=== PATIENT | female | born 1995 | race Caucasian/White ===

== ENCOUNTER → 2018-03-11 00:33 | Observation (INO) ==
[2018-03-10 22:31] LABS: Bilirubin,Urine Negative (Negative); Blood,Urine Negative (Negative); Clarity,Urine Cloudy (Clear); Color,Urine Yellow (Yellow); Glucose,Urine (UA) >=1000 mg/dL (Normal); Ketones,Urine Negative (Negative); Leukocyte Esterase,Urine Small (Negative); Nitrite,Urine Negative (Negative); PH,Urine 6.5 pH Units (5.0-8.0); Protein,Urine Negative (Neg-Trace); Specific Gravity,Urine 1.019 (1.010-1.025); Urobilinogen,Urine Normal (Normal)
[2018-03-10 22:32] LABS: Bacteria,Urine Moderate per hpf (None-Few); Hyaline Casts,Urine None Seen per lpf (None-Few); Squamous Epithelial Cell,Urine Many per lpf (None-Few); WBC,Urine 15-30 per hpf (0-3)
[2018-03-10 22:45] LABS: Amphetamine Screen,Urine Negative ng/mL (Cutoff=1000); Barbiturate Screen,Urine Negative ng/mL (Cutoff=200); Benzodiazepines Screen,Urine Negative ng/mL (Cutoff=200); Cannabinoid Screen,Urine Negative ng/mL (Cutoff = 50); Cocaine Screen,Urine Negative ng/mL (Cutoff= 300); Opiate Screen,Urine Negative ng/mL (Cutoff=300); Phencyclidine Screen,Urine Negative ng/mL (Cutoff=25)
[2018-03-10 22:52] LABS: Amorphous Sediment,Urine Few (Few); RBC,Urine 0-3 per hpf (0-3)
--- NOTE | 2018-03-11 00:05 | Discharge Summary ---
Date of Encounter: 03/11/18 Time of Encounter: 00:04 - Discharge Diagnosis (1) 28 weeks gestation of Priority: Primary Status: Acute Comments: Infant observation for complaints of vomiting Continuous monitoring and toco monitoring No uterine activity noted on monitor (2) Vomiting affecting , antepartum Priority: Secondary Status: Acute Comments: Patient states she has been vomiting since 8 PM Sublingual Zofran given with positive results. Patient states she feels better after the medication and has not vomited since. We will send home with prescription for Zofran as needed (3) Diabetes mellitus complicating Priority: Secondary Status: Acute Comments: Patient is type I diabetic. She is on multiple insulins Follow-up on Sunday as scheduled for regular appointment Qualifiers: Trimester: third trimester Qualified Code(s): O24.913 - Unspecified diabetes mellitus in , third trimester - Discharge Medications Prescriptions: Ondansetron HCl [Zofran] 4 mg PO Q8HR PRN 5 Days #15 tab PRN Reason: Nausea Home Medications: Cephalexin [Keflex] 500 mg PO BID #10 capsule 02/17/18 [Rx] Ondansetron HCl [Zofran] 4 mg PO Q8HR PRN 5 Days #15 tab 03/11/18 [Rx] Allergies/Adverse Reactions: Allergy/AdvReac Type Severity Reaction Status Date / Time Diphenylpyraline Allergy Mild Hives Verified 03/10/18 21:44 Data Procedures and tests throughout hospitalization: Laboratory Tests 03/10/18 03/10/18 21:48 21:48 Urine Color Yellow Urine Clarity Cloudy A Urine pH 6.5 Ur Specific [place] 1.019 Urine Protein Negative Urine Glucose (UA) >=1000 H Urine Ketones Negative Urine Blood Negative Urine Nitrite Negative Urine Bilirubin Negative Urine Urobilinogen Normal Ur Leukocyte Esterase Small H Urine Microscopic RBC 0-3 Urine Microscopic WBC 15-30 H Ur Squamous Epith Cells Many H Amorphous Sediment Few Urine Bacteria Moderate H Hyaline Casts None Seen Ur Culture Indicated? NO. A Urine Opiates Screen Negative Ur Barbiturates Screen Negative Ur Phencyclidine Scrn Negative Ur Amphetamines Screen Negative U Benzodiazepines Scrn Negative Urine Cocaine Screen Negative U Marijuana (THC) Screen Negative Ur Drug Screen Interp See Below Labs on day of discharge: Labs from last 24 hours 03/10/18 03/10/18 21:48 21:48 Urine Color Yellow Urine Clarity Cloudy A Urine pH 6.5 Ur Specific [place] 1.019 Urine Protein Negative Urine Glucose (UA) >=1000 H Urine Ketones Negative Urine Blood Negative Urine Nitrite Negative Urine Bilirubin Negative Urine Urobilinogen Normal Ur Leukocyte Esterase Small H Urine Microscopic RBC 0-3 Urine Microscopic WBC 15-30 H Ur Squamous Epith Cells Many H Amorphous Sediment Few Urine Bacteria Moderate H Hyaline Casts None Seen Ur Culture Indicated? NO. A Urine Opiates Screen Negative Ur Barbiturates Screen Negative Ur Phencyclidine Scrn Negative Ur Amphetamines Screen Negative U Benzodiazepines Scrn Negative Urine Cocaine Screen Negative U Marijuana (THC) Screen Negative Ur Drug Screen Interp See Below Date of admission: 03/10/18 21:32 Discharging clinician: Heather Rosario Anticipated date of discharge: 03/11/18 - Patient Status Disposition: Home, Self-Care Condition: Good Functional capacity at discharge: independent ambulation Overall status at discharge: patient is progressing back to baseline - Discharge Instructions Follow Up With: Ritu Renteria MD [Partnered Physician] - - Diet and Activity Activity: resume usual activities as tolerated Diet: regular diet 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 Reports positive movement denies vaginal bleeding and leakage of fluid. Urinalysis was obtained patient mildly dehydrated. She was given sublingual Zofran while here which was effective and she reports feeling better. She is scheduled to follow-up for regular care on 03/[address] Renteria. Patient says she has not taken her evening doses of insulin. Her fingerstick tonight was 228. According to her record her glucose levels are not well controlled. She is instructed to take her evening doses when she returns home. Zofran by mouth sent to pharmacy. heart rate while here 155 bpm, +10 x 10 accelerations, no decelerations. heart tracing appropriate for gestational age. No uterine activity noted on monitor Time Attestation: Total time spent providing and/or coordinating discharge services: Time Spent: Less than 30 minutes Exam - Constitutional General appearance IM: A&O X 3, pleasant, no acute distress, answers questions appropriately - Respiratory Respiratory exam: Present: CTAB - Cardiovascular Cardiovascular exam IM: Present: RRR, +S1, +S2 - GI/Abdominal GI/Abdominal exam IM: normal bowel sounds - Rectal Rectal exam: deferred - Extremities Exam Extremities exam IM: Present: full ROM, normal capillary refill, normal inspection - Neurological Exam Neurological exam: alert, normal gait, oriented X3, reflexes normal - VTE Reasons for not Prescribing Prophylaxis: Treatment not Indicated - Low risk for VTE
[~2018-03-11 00:33] MED LIST: Ondansetron ODT 4 MG TAB.RAPDIS SL ONE
== END | disposition home or self-care (01) ==
LOC: 1NENULAB
PROVIDERS: ADMIT Obstetrics & Gynecology; ATTEND Obstetrics & Gynecology

== ENCOUNTER → 2018-03-19 15:08 | Observation (INO) ==
[2018-03-19 14:35] LABS: Amphetamine Screen,Urine Negative ng/mL (Cutoff=1000); Barbiturate Screen,Urine Negative ng/mL (Cutoff=200); Benzodiazepines Screen,Urine Negative ng/mL (Cutoff=200); Cannabinoid Screen,Urine Negative ng/mL (Cutoff = 50); Cocaine Screen,Urine Negative ng/mL (Cutoff= 300); Opiate Screen,Urine Negative ng/mL (Cutoff=300); Phencyclidine Screen,Urine Negative ng/mL (Cutoff=25)
[2018-03-19 14:38] LABS: Bilirubin,Urine Negative (Negative); Blood,Urine Negative (Negative); Clarity,Urine Clear (Clear); Color,Urine Yellow (Yellow); Glucose,Urine (UA) Normal (Normal); Ketones,Urine Negative (Negative); Leukocyte Esterase,Urine Small (Negative); Nitrite,Urine Negative (Negative); PH,Urine 6.5 pH Units (5.0-8.0); Protein,Urine Negative (Neg-Trace); Specific Gravity,Urine 1.008 (1.010-1.025); Urobilinogen,Urine Normal (Normal)
[2018-03-19 14:44] LABS: Bacteria,Urine Few per hpf (None-Few); Hyaline Casts,Urine None Seen per lpf (None-Few); RBC,Urine 0-3 per hpf (0-3); Squamous Epithelial Cell,Urine Many per lpf (None-Few)
[~2018-03-19 15:08] MED LIST changes: +Clotrimazole Vag CRM 45 GM TUBE VG SCH; -Ondansetron ODT 4 MG TAB.RAPDIS SL ONE
--- NOTE | 2018-03-19 18:55 | OB/GYN Progress Note ---
Date of Encounter: 03/19/18 Time of Encounter: 18:53 - Assessment and Plan (1) 28 weeks gestation of Current Visit: No Status: Acute 22 y/o @ 28 weeks who presents to L&D for vag discharge, no LOF, VB or ctxs, feels good FM, VE shows yeast infx, vaginosis panel sent clotrimazole given, follow up outpt Objective - Labs Labs: Abnormal lab results Ur Specific [place] 1.008 (1.010-1.025) L 03/19/18 14:00 Ur Leukocyte Esterase Small (Negative) H 03/19/18 14:00 Urine Microscopic WBC 5-15 per hpf (0-3) H 03/19/18 14:00 Ur Squamous Epith Cells Many per lpf (None-Few) H 03/19/18 14:00 Ur Culture Indicated? NO. (NO) A 03/19/18 14:00
== END | disposition home or self-care (01) ==
LOC: 1NENULAB
PROVIDERS: ADMIT Student in an Organized Health Care Education/Training Program; ATTEND Student in an Organized Health Care Education/Training Program

== ENCOUNTER → 2018-04-14 16:35 | Observation (INO) ==
[2018-04-14 13:55] LABS: Basophils # 0.1 K/mcL (0.0-0.2); Basophils % 0.5 %; Eosinophils # 0.3 K/mcL (0.0-0.6); Eosinophils % 1.6 %; Immature Granulocytes % 1.2 % (0-4); Lymphocytes # 3.3 K/mcL (0.6-4.6); Lymphocytes % 18.8 %; Mean Corpuscular HGB Conc 31.4 g/dL (31.6-35.5); Mean Corpuscular Hemoglobin 25.1 pg (28.0-33.3); Mean Corpuscular Volume 79.9 fL (83.0-100.0); Mean Platelet Volume 11.7 fL (9.4-12.4); Monocytes % 5.6 %; Neutrophils # 12.7 K/mcL (1.6-8.9); Platelet Count 266 K/mcL (140-400); Red Blood Count 4.38 M/mcL (3.82-4.97); Red Cell Distribution Width 14.6 % (11.5-14.5); Segmented Neutrophils % 72.3 %
[2018-04-14 14:00] LABS: Amphetamine Screen,Urine Negative ng/mL (Cutoff=1000); Barbiturate Screen,Urine Negative ng/mL (Cutoff=200); Benzodiazepines Screen,Urine Negative ng/mL (Cutoff=200); Cannabinoid Screen,Urine Negative ng/mL (Cutoff = 50); Cocaine Screen,Urine Negative ng/mL (Cutoff= 300); Creatinine,Urine 125 mg/dL; Opiate Screen,Urine Negative ng/mL (Cutoff=300); Phencyclidine Screen,Urine Negative ng/mL (Cutoff=25); Protein/Creatinine Ratio,Urine 0.22 mg/mg (0.00-0.20)
[2018-04-14 14:10] LABS: Alanine Aminotransferase 7 Units/L (7-52); Aspartate Amino Transferase 9 Units/L (13-39); BUN/Creatinine Ratio 14 (6-26); Blood Urea Nitrogen 7 mg/dL (6-20); Lactate Dehydrogenase 116 Units/L (140-271); Uric Acid 5.9 mg/dL (2.3-7.6); eGFR For Non-African Americans > 60 (> 60)
--- NOTE | 2018-04-14 15:09 | Anesthesia Procedures ---
Date of Encounter: 04/14/18 Time of Encounter: 14:26 Procedures: Anesthesia - Epidural/Spinal Patient ID/Chart reviewed: Yes Patient examined: Yes OB Eval: Gestational age: 38 OB Eval: : 5 OB Eval: Hx Para: 1 OB Eval: Dilated at (cm): 9 OB Eval: Contractions: Non-stressed pattern Consent Obtained: Yes Supplemental Oxygen: None/Room Air Site Prep: Aseptic Technique, Sterile prep and drape, 0.5% Chlorhexidine/Alcohol Local Anesthetic: Lidocaine 1% Amount of Local Anesthetic used: 2 Touhy Needle Gauge: 18 Touhy Needle Depth (cm): 9 Catheter Depth at Skin (cm): 14 Test Dose (1.5% Lido + Epi): Volume given (mls): 3 Test Dose Result: Negative Loading Dose: Other: 7ml of lido 2% with epi Loading Dose Administered: Thru Catheter Infusion Med: 0.125% Bupivacaine w/ 2 mcg/ml Fentanyl Infusion Rate (mls/hr): [address]: Tegaderm, Tape Interspace Used: L3-L4 Loss of Resistance (LAQUITA): Yes (saline) Blood: No CSF: Yes (attempted 2 levels with CSE KIT, with dura pop but no CSF.) Procedure: dura pop with no csf flow, introducer replaced again no flow twice at two different levels, epidural cath easily placed, patient kept in sitting with 5min to allow lido to take effect. VSS though out, mag well. strict aseptic tech though out,
--- NOTE | 2018-04-14 15:20 | Anesthesia Evaluation PreOp ---
Addendum entered and electronically signed by Raymundo Hernandez CRNA 04/14/18 15:41: entered in ERROR. Please disregard entire Document!!!! 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 (anxiety, depression, ADHD, Herpes simplex on valtrex no active lesions reported.) Other Medical History: Diabetes Type I (gestational), GERD Alcohol Use: none Drug use: none Medications and Allergies Levemir 45 units SQ DAILY 03/19/18 [History] Pnv95/Ferrous Fumarate/FA [ Vitamin Tablet] 1 tab PO BID 03/19/18 [History] metFORMIN [Glucophage] 1,000 mg PO BID 03/19/18 [History] Ferrous Sulfate [Iron] 325 mg PO 04/14/18 [History] Allergy/AdvReac Type Severity Reaction Status Date / Time cephalexin [From Keflex] Allergy Intermediate Hives Verified 04/14/18 13:21 diphenhydramine Allergy Intermediate Hives Verified 04/14/18 13:21 [From Benadryl] Anesthesia Results - Labs 04/14/18 13:11 04/14/18 13:11 Anesthesia Exam - HEENT Pupil (Motor): Pupils equal Mallampati: II Teeth: Normal Oral Opening: Greater than 3 - FILTER PRESS PUMPER LOC: Oriented FILTER PRESS PUMPER Motor: Normal RUE, Normal LUE, Normal RLE, Normal LLE, Normal Face FILTER PRESS PUMPER Sensory: Normal: RUE, LUE, RLE, LLE, Face - Cardiac Rhythm: Regular Murmur: None - Pulmonary Breath Sounds: bilateral Clear Respiratory Effort: Symmetrical Anesthesia Assess/Plan ASA Score: 3 Level of consciousness: Cooperative, Oriented Anesthetic Plan: General, Spinal, Epidural Monitoring Plan: Standard Monitors Recovery Plan: PACU
[2018-04-14 15:37] LABS: Bilirubin,Urine Negative (Negative); Blood,Urine Negative (Negative); Clarity,Urine Clear (Clear); Color,Urine Yellow (Yellow); Glucose,Urine (UA) Normal (Normal); Ketones,Urine Negative (Negative); Leukocyte Esterase,Urine Negative (Negative); Nitrite,Urine Negative (Negative); Protein,Urine Negative (Neg-Trace); Specific Gravity,Urine 1.009 (1.010-1.025); Urobilinogen,Urine Normal (Normal)
--- NOTE | 2018-04-14 16:17 | OB/GYN Progress Note ---
Date of Encounter: 04/14/18 Time of Encounter: 16:14 (PIH eval) - Assessment and Plan (1) Hypertension affecting in third trimester Current Visit: Yes Status: Acute (2) 31 weeks gestation of Current Visit: No Status: Acute Patient will be discharged to home. Patient instructed to have pelvic rest and bedrest. Patient to monitor blood pressures 3 times a day at home. Patient to follow up in office on Sunday. Warning signs of preeclampsia were discussed. Patient will be discharged to home. Subjective - Subjective Principal diagnosis: PIH eval Interval history: Lori is a 22-year-old female 1 who presents to labor and delivery at 32 weeks and 3 days complaining of elevated blood pressures 130/90 , headache and nausea at home. She presented to labor and delivery for evaluation. On arrival patient's blood pressures were stable and in normal range. PIH eval was sent. Patient was monitored throughout the afternoon. Reactive heart rate tracing. Occasional contraction was noted. No decelerations seen. Results of blood work were then reviewed and all found to be normal. No elevations were seen. Because of this instructions for Kareem is hypertension were discussed with this patient. She does have follow-up in the office on Sunday for nonstress test and blood pressure eval. Objective - Exam FHR: category 1 Abdomen: Present: normal appearance, soft, gravid Uterus: Present: normal - Labs Labs: Abnormal lab results WBC 17.6 K/mcL (4.3-11.1) H 04/14/18 13:11 Hgb 11.0 g/dL (11.5-15.4) L 04/14/18 13:11 Hct 35.0 % (35.3-44.9) L 04/14/18 13:11 MCV 79.9 fL (83.0-100.0) L 04/14/18 13:11 MCH 25.1 pg (28.0-33.3) L 04/14/18 13:11 MCHC 31.4 g/dL (31.6-35.5) L 04/14/18 13:11 RDW 14.6 % (11.5-14.5) H 04/14/18 13:11 Neutrophils # 12.7 K/mcL (1.6-8.9) H 04/14/18 13:11 Creatinine 0.51 mg/dL (0.60-1.20) L 04/14/18 13:11 AST 9 Units/L (13-39) L 04/14/18 13:11 Lactate Dehydrogenase 116 Units/L (140-271) L 04/14/18 13:11 Ur Specific [place] 1.009 (1.010-1.025) L 04/14/18 15:17 Protein/Creatinin Ratio 0.22 mg/mg (0.00-0.20) H 04/14/18 13:11 Urine Total Protein 28 mg/dL (1-14) H 04/14/18 13:11
== END | disposition home or self-care (01) ==
LOC: 1NENULAB
PROVIDERS: ADMIT Registered Nurse; ATTEND Registered Nurse

== ENCOUNTER 2018-04-30 15:49 | Observation (INO) ==
[2018-04-30] MEDS ORDERED: Ringers Solution, Lactated 1,000 ML IVC ONE (16:19)
[2018-04-30 16:21] LABS: Basophils # 0.1 K/mcL (0.0-0.2); Basophils % 0.4 %; Eosinophils # 0.3 K/mcL (0.0-0.6); Eosinophils % 1.6 %; Hematocrit 36.5 % (35.3-44.9); Hemoglobin 11.6 g/dL (11.5-15.4); Immature Granulocytes % 1.2 % (0-4); Lymphocytes # 3.4 K/mcL (0.6-4.6); Lymphocytes % 17.7 %; Mean Corpuscular HGB Conc 31.8 g/dL (31.6-35.5); Mean Corpuscular Hemoglobin 25.4 pg (28.0-33.3); Mean Platelet Volume 12.1 fL (9.4-12.4); Neutrophils # 14.4 K/mcL (1.6-8.9); Platelet Count 260 K/mcL (140-400); Red Blood Count 4.56 M/mcL (3.82-4.97); Red Cell Distribution Width 15.4 % (11.5-14.5); Segmented Neutrophils % 74.1 %
[2018-04-30 16:22] LABS: Bilirubin,Urine Negative (Negative); Blood,Urine Negative (Negative); Clarity,Urine Cloudy (Clear); Color,Urine Yellow (Yellow); Glucose,Urine (UA) Normal (Normal); Ketones,Urine 15 mg/dL (Negative); Leukocyte Esterase,Urine Large (Negative); Nitrite,Urine Negative (Negative); Protein,Urine Negative (Neg-Trace); Specific Gravity,Urine 1.006 (1.010-1.025); Urobilinogen,Urine Normal (Normal)
[2018-04-30 16:25] LABS: Bacteria,Urine Moderate per hpf (None-Few); Hyaline Casts,Urine None Seen per lpf (None-Few); RBC,Urine 0-3 per hpf (0-3); Squamous Epithelial Cell,Urine Many per lpf (None-Few); WBC,Urine 50-100 per hpf (0-3)
[2018-04-30 16:32] LABS: Amphetamine Screen,Urine Negative ng/mL (Cutoff=1000); Barbiturate Screen,Urine Negative ng/mL (Cutoff=200); Benzodiazepines Screen,Urine Negative ng/mL (Cutoff=200); Cannabinoid Screen,Urine Negative ng/mL (Cutoff = 50); Cocaine Screen,Urine Negative ng/mL (Cutoff= 300); Creatinine,Urine 32 mg/dL; Opiate Screen,Urine Negative ng/mL (Cutoff=300); Phencyclidine Screen,Urine Negative ng/mL (Cutoff=25); Protein/Creatinine Ratio,Urine 0.34 mg/mg (0.00-0.20)
[2018-04-30 16:45] LABS: Alanine Aminotransferase 6 Units/L (7-52); Aspartate Amino Transferase 8 Units/L (13-39); BUN/Creatinine Ratio 14 (6-26); Blood Urea Nitrogen 8 mg/dL (6-20); Lactate Dehydrogenase 115 Units/L (140-271); Uric Acid 6.1 mg/dL (2.3-7.6); eGFR For Non-African Americans > 60 (> 60)
[2018-04-30 17:26] LABS: Glucose 120 mg/dL (70-105)
[2018-04-30] MEDS ORDERED: Ondansetron 4 MG/2 ML VIAL IVP ONE (17:53)
[2018-04-30] MEDS ORDERED: Ondansetron ODT 4 MG TAB.RAPDIS SL ONE (18:05)
[2018-04-30] MEDS ORDERED: Nitrofurantoin (BID) 100 MG CAPSULE PO SCH (18:45)
--- NOTE | 2018-04-30 19:52 | OB/GYN Progress Note ---
Date of Encounter: 04/30/18 Time of Encounter: 19:46 - Assessment and Plan (1) 34 weeks gestation of Current Visit: Yes Status: Acute Lori is a 22 y/o @ 34+5 weeks who presented to L&D for tox eval, she called saying that her BP was in the mild range, no LOF, VB or ctxs feels good FM, patient is type 2 DM on Metformin and insulin, cervix checked and FT, NST reactive, UA suggests UTI, macrobid given, patient allergic to Keflex, tox labs show 0.34 proteinuria with normal labs several normal pressures her on L&D with one elevated BP in the 140's, patient to be discharged to follow up out patient, she may have pre-eclampsia w/o severe features but the pressures have to be 4 hr apart, patient scheduled for NST tomorrow, will do BP check as well Objective - Vital Signs Vital Signs: Intake and Output 04/30/18 04/30/18 04/30/18 07:59 15:59 23:59 Other: Weight 90.3 kg Patient Weight 04/30/18 23:59 Weight 90.3 kg - Labs Labs: Abnormal lab results WBC 19.4 K/mcL (4.3-11.1) H 04/30/18 16:00 MCV 80.0 fL (83.0-100.0) L 04/30/18 16:00 MCH 25.4 pg (28.0-33.3) L 04/30/18 16:00 RDW 15.4 % (11.5-14.5) H 04/30/18 16:00 Neutrophils # 14.4 K/mcL (1.6-8.9) H 04/30/18 16:00 Creatinine 0.57 mg/dL (0.60-1.20) L 04/30/18 16:00 Glucose 120 mg/dL (70-105) H 04/30/18 16:00 AST 8 Units/L (13-39) L 04/30/18 16:00 ALT 6 Units/L (7-52) L 04/30/18 16:00 Lactate Dehydrogenase 115 Units/L (140-271) L 04/30/18 16:00 Urine Clarity Cloudy (Clear) A 04/30/18 16:00 Ur Specific [place] 1.006 (1.010-1.025) L 04/30/18 16:00 Urine Ketones 15 mg/dL (Negative) H 04/30/18 16:00 Ur Leukocyte Esterase Large (Negative) H 04/30/18 16:00 Urine Microscopic WBC 50-100 per hpf (0-3) H 04/30/18 16:00 Ur Squamous Epith Cells Many per lpf (None-Few) H 04/30/18 16:00 Urine Bacteria Moderate per hpf (None-Few) H 04/30/18 16:00 Ur Culture Indicated? NO. (NO) A 04/30/18 16:00 Protein/Creatinin Ratio 0.34 mg/mg (0.00-0.20) H 04/30/18 16:00
== END 2018-04-30 20:15 | disposition home or self-care (01) ==
LOC: 1NENULAB
PROVIDERS: ADMIT Advanced Practice Midwife; ATTEND Advanced Practice Midwife

== ENCOUNTER → 2018-05-05 18:30 | Observation (INO) ==
[2018-05-05 15:34] LABS: Amphetamine Screen,Urine Negative ng/mL (Cutoff=1000); Barbiturate Screen,Urine Negative ng/mL (Cutoff=200); Benzodiazepines Screen,Urine Negative ng/mL (Cutoff=200); Cannabinoid Screen,Urine Negative ng/mL (Cutoff = 50); Cocaine Screen,Urine Negative ng/mL (Cutoff= 300); Opiate Screen,Urine Negative ng/mL (Cutoff=300); Phencyclidine Screen,Urine Negative ng/mL (Cutoff=25)
--- NOTE | 2018-05-05 15:34 | OB/GYN Progress Note ---
Date of Encounter: 05/06/18 Time of Encounter: 15:32 - Assessment and Plan (1) 35 weeks gestation of Status: Acute 22 y/o @ 35+3 weeks presents to L&D with complaints of cough since , Her niece from [place] presented with the symptoms and multiple members have the cough now, No LOF, VB or ctxs, initially reported decreased FM, NST reactive, labs sent, CBC, CMP, UA Azithro given with Guafenisin, patient discharged to follow up outpt Objective - Vital Signs Vital Signs: Intake and Output 05/04/18 05/05/18 05/05/18 23:59 07:59 15:59 Other: Weight 92.5 kg Patient Weight 05/05/18 23:59 Weight 92.5 kg
[2018-05-05 16:21] LABS: Basophils # 0.1 K/mcL (0.0-0.2); Basophils % 0.5 %; Eosinophils # 0.2 K/mcL (0.0-0.6); Hematocrit 35.7 % (35.3-44.9); Hemoglobin 11.4 g/dL (11.5-15.4); Immature Granulocytes % 0.9 % (0-4); Lymphocytes # 2.5 K/mcL (0.6-4.6); Lymphocytes % 20.7 %; Mean Corpuscular HGB Conc 31.9 g/dL (31.6-35.5); Mean Corpuscular Hemoglobin 25.4 pg (28.0-33.3); Mean Corpuscular Volume 79.5 fL (83.0-100.0); Mean Platelet Volume 12.3 fL (9.4-12.4); Monocytes # 1.2 K/mcL (0.0-1.3); Monocytes % 9.6 %; Neutrophils # 8.1 K/mcL (1.6-8.9); Platelet Count 244 K/mcL (140-400); Red Blood Count 4.49 M/mcL (3.82-4.97); Red Cell Distribution Width 15.7 % (11.5-14.5); Segmented Neutrophils % 66.3 %
[2018-05-05 16:37] LABS: Alanine Aminotransferase 8 Units/L (7-52); Albumin 3.3 g/dL (3.5-5.7); Alkaline Phosphatase 74 Units/L (34-104); Aspartate Amino Transferase 11 Units/L (13-39); BUN/Creatinine Ratio 10 (6-26); Bilirubin,Total 0.2 mg/dL (0.3-1.0); Blood Urea Nitrogen 5 mg/dL (6-20); Carbon Dioxide 20 mEq/L (23-29); Chloride 107 mEq/L (98-107); Globulin 3.2 g/dL (2.4-3.5); Glucose 74 mg/dL (70-105); Osmolality,Calculated 280 (280-300); Potassium 3.9 mEq/L (3.5-5.1); Sodium 137 mEq/L (136-145); Total Protein 6.5 g/dL (6.4-8.9); eGFR For Non-African Americans > 60 (> 60)
[2018-05-05 17:49] LABS: Bacteria,Urine Moderate per hpf (None-Few); Bilirubin,Urine Negative (Negative); Blood,Urine Negative (Negative); Clarity,Urine Clear (Clear); Color,Urine Yellow (Yellow); Glucose,Urine (UA) Normal (Normal); Hyaline Casts,Urine None Seen per lpf (None-Few); Ketones,Urine Negative (Negative); Leukocyte Esterase,Urine Moderate (Negative); Nitrite,Urine Negative (Negative); PH,Urine 6.5 pH Units (5.0-8.0); Protein,Urine Negative (Neg-Trace); RBC,Urine 0-3 per hpf (0-3); Specific Gravity,Urine 1.011 (1.010-1.025); Squamous Epithelial Cell,Urine Many per lpf (None-Few); Urobilinogen,Urine Normal (Normal)
[~2018-05-05 18:30] MED LIST changes: +Azithromycin 250 MG TABLET PO ONE; -Clotrimazole Vag CRM 45 GM TUBE VG SCH; +GuaiFENesin Liq 200 MG/10 ML UDC PO PRN; +Ringers Solution, Lactated 1,000 ML IVC ONE
== END | disposition home or self-care (01) ==
LOC: 1NENULAB
PROVIDERS: ADMIT Advanced Practice Midwife; ATTEND Advanced Practice Midwife

== ENCOUNTER 2018-05-13 22:48 | Inpatient (IN) ==
[2018-05-13 21:18] LABS: Alanine Aminotransferase 8 Units/L (7-52); Aspartate Amino Transferase 11 Units/L (13-39); BUN/Creatinine Ratio 15 (6-26); Blood Urea Nitrogen 9 mg/dL (6-20); Lactate Dehydrogenase 147 Units/L (140-271); eGFR For Non-African Americans > 60 (> 60)
[2018-05-13 21:19] LABS: Creatinine,Urine 13 mg/dL
[2018-05-13 21:35] LABS: Basophils # 0.1 K/mcL (0.0-0.2); Basophils % 0.4 %; Eosinophils # 0.2 K/mcL (0.0-0.6); Eosinophils % 1.2 %; Hematocrit 39.7 % (35.3-44.9); Hemoglobin 12.6 g/dL (11.5-15.4); Immature Granulocytes % 0.7 % (0-4); Lymphocytes # 4.6 K/mcL (0.6-4.6); Lymphocytes % 22.3 %; Mean Corpuscular HGB Conc 31.7 g/dL (31.6-35.5); Mean Corpuscular Volume 78.9 fL (83.0-100.0); Mean Platelet Volume 12.3 fL (9.4-12.4); Monocytes # 1.2 K/mcL (0.0-1.3); Neutrophils # 14.3 K/mcL (1.6-8.9); Platelet Count 304 K/mcL (140-400); Red Blood Count 5.03 M/mcL (3.82-4.97); Red Cell Distribution Width 15.9 % (11.5-14.5); Segmented Neutrophils % 69.4 %
--- NOTE | 2018-05-13 22:31 | Anesthesia Evaluation PreOp ---
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 Significant HX Other Medical History: Other (DM on metformin/insulin,) Anesthesia History: No Prior Anesthetic Complications, Past Anesthesia (no family hx.) Alcohol Use: none Drug use: none Medications and Allergies Levemir 45 units SQ BID 03/19/18 [History] Pnv95/Ferrous Fumarate/FA [ Vitamin Tablet] 1 tab PO BID 03/19/18 [History] metFORMIN [Glucophage] 1,000 mg PO BID 03/19/18 [History] Ferrous Sulfate [Iron] 325 mg PO BID 04/14/18 [History] Allergy/AdvReac Type Severity Reaction Status Date / Time cephalexin [From Keflex] Allergy Intermediate Hives Verified 05/13/18 19:42 diphenhydramine Allergy Intermediate Hives Verified 05/13/18 19:42 [From Benadryl] Anesthesia Results - Labs 05/13/18 21:11 05/13/18 20:30 Anesthesia Exam - HEENT Pupil (Motor): Pupils equal Mallampati: II Teeth: Normal Oral Opening: Greater than 3 - YARN MERCERIZER OPERATOR LOC: Oriented YARN MERCERIZER OPERATOR Motor: Normal RUE, Normal LUE, Normal RLE, Normal LLE, Normal Face YARN MERCERIZER OPERATOR Sensory: Normal: RUE, LUE, RLE, LLE, Face - Cardiac Rhythm: Regular Murmur: None - Pulmonary Breath Sounds: bilateral Clear Respiratory Effort: Symmetrical Anesthesia Assess/Plan ASA Score: 2 Level of consciousness: Cooperative, Oriented Anesthetic Plan: General, Spinal, Epidural Monitoring Plan: Standard Monitors Recovery Plan: PACU
[~2018-05-13 22:48] MED LIST changes: +*HR* FentaNYL (PF) 100 MCG/2 ML VIAL ONE; +*HR* Labetalol 20 MG/4 ML SYRINGE IVP ONE; +*HR* Morphine Sulfate/PF 10 MG/10 ML AMPUL ONE; -Azithromycin 250 MG TABLET PO ONE; +Bupivacaine/PF 0.75% in Dex 2 ML AMPUL INFILT ONE; +Calcium Gluconate 1,000 MG/10 ML VIAL IVPB PRN; +Epidural Premix (fent/bupiv) 110 ML EP SCH; +Famotidine 20 MG/2 ML VIAL IVP ONE; -GuaiFENesin Liq 200 MG/10 ML UDC PO PRN; +Lidocaine -MPF 1% 2 ML VIAL ONE; +Magnesium Sulfate 20 gm/500mL 20 GM/500 ML IV.SOLN IVC SCH; +Metoclopramide 10 MG/2 ML VIAL IVP ONE; +Oxytocin 20 units/ LR 1000 mL 20 UNIT/1,000 ML BAG IVC ONE; +Penicillin G Potassium 5,000,000 UNIT in 0.9 % Sodium Chloride Mini Bag 100 ML IVPB ONE; +Ringers Solution, Lactated 1,000 ML ONE
[2018-05-13] MEDS ORDERED: Gentamicin 310 MG in 0.9 % Sodium Chloride 100 ML IVPB ONE (22:53)
[2018-05-13] MEDS ORDERED: Clindamycin 900 MG/50 ML 900 MG/50 ML IV.SOLN IVPB ONE (22:53)
[2018-05-13] MEDS ORDERED: Ringers Solution, Lactated 1,000 ML IVC SCH (23:00)
[2018-05-13] MEDS ORDERED: *HR* HYDROmorphone (PF) 1 MG/ML SYRINGE IVP PRN (23:35)
[2018-05-13] MEDS ORDERED: Acetaminophen IV 1,000 MG/100 ML INFUS..BTL IVPB ONE (23:35)
[2018-05-13] MEDS ORDERED: Lidocaine -MPF 2% 5 ML VIAL ONE (23:57)
[2018-05-13] MEDS ORDERED: EPHEDrine 50 MG/ML VIAL ONE (23:57)
[2018-05-13] MEDS ORDERED: Ringers Solution, Lactated 1,000 ML ONE (23:57)
--- NOTE | 2018-05-14 00:10 | OB/GYN History & Physical ---
Date of Encounter: 05/14/18 Time of Encounter: 00:08 Assessment and Plan (1) 36 weeks gestation of Current visit: Yes Status: Acute 22 y/o @ 36 weeks, Type 2 DM, Pre-eclampsia with severe features, no movement, NRFHT, Plan: With severe range pressures, Mg started with resolution, tox labs sent, After hours of tracing, no accels and with minimal variability and her cervix closed, I discussed with the patient that doing a would be best at this time as she keeps reporting that she does not feel movement, Her FS 117, Consent signed, Anesthesia aware. History of Present Illness HPI: Ms. Sarah is a 22 year old female @ 36+4 weeks who presents to L&D with c omplaints of no movement since the AM of 05/13, no LOF or VB. She is a Type 2 DM on insulin and Metformin with controlled sugars. She also reports that her pressures were elevated at home (140's). She has preeclampsia without severe features and was scheduled for IOL on 05/17 @ 37 weeks. On L&D, she had multiple severe range BP. She is GBS+. She reports HAs but no RUQ pain, blurry vision, or other toxemia symptoms. Past Med Surg Social Fam HX - Past Medical History Medical history: diabetes Additional medical history: Type 2 Psychiatric history: no psych history - Past Surgical History Surgical History: appendectomy, other Additional surgical history: tonsillectomy and adenoids, tubes in bilat ears, wisdom teeth - Social History Smoking Status: Never smoker Smokeless Tobacco Status: No Alcohol use: none Drug use: none - Family History Mother Adopted: No Family Member Ethnicity: Non- Living Status: Still Living Hx Family Cardiac Disorders: No Hx Family Respiratory Disorders: No Hx Family Cancer: No Hx Family GI Disorders: No Hx Family Genitourinary Disorders: Yes Hx Family Endocrine Disorder: No Hx Family Musculoskeletal Disorders: No Hx Family Neuromuscular Disorders: No Hx Family Neurologic Disorders: No Hx Family HEENT Disorders: No Hx Family Autoimmune Disorders: No Hx Family Reproductive Disorders: No Hx Family Psychosocial Disorders: No Hx Family Medical Disorders: No Obstetrical History - Pregnancies : 2 Para: 0 Medications and Allergies Levemir 45 units SQ BID 03/19/18 [History] Pnv95/Ferrous Fumarate/FA [ Vitamin Tablet] 1 tab PO BID 03/19/18 [History] metFORMIN [Glucophage] 1,000 mg PO BID 03/19/18 [History] Ferrous Sulfate [Iron] 325 mg PO BID 04/14/18 [History] Allergy/AdvReac Type Severity Reaction Status Date / Time cephalexin [From Keflex] Allergy Intermediate Hives Verified 05/13/18 19:42 diphenhydramine Allergy Intermediate Hives Verified 05/13/18 19:42 [From Benadryl] Review of System OB All systems PM: reviewed and no additional remarkable complaints except as stated Exam - Constitutional Constitutional: no acute distress - HEENT HEENT: PERRL - Neck Neck exam: full ROM - Lungs Respiratory exam: CTAB - Cardiovascular Cardiovascular exam: RRR - Abdomen Abdomen: Present: gravid - Cervix Dilation: 0 Results Result Diagrams: 05/13/18 21:11 05/13/18 20:30 Abnormal lab results WBC 20.6 K/mcL (4.3-11.1) H 05/13/18 21:11 RBC 5.03 M/mcL (3.82-4.97) H 05/13/18 21:11 MCV 78.9 fL (83.0-100.0) L 05/13/18 21:11 MCH 25.0 pg (28.0-33.3) L 05/13/18 21:11 RDW 15.9 % (11.5-14.5) H 05/13/18 21:11 Neutrophils # 14.3 K/mcL (1.6-8.9) H 05/13/18 21:11 Creatinine 0.59 mg/dL (0.60-1.20) L 05/13/18 20:30 POC Glucose 117 mg/dL (70-99) H 05/13/18 21:38 AST 11 Units/L (13-39) L 05/13/18 20:30 All other labs normal. - VTE Reasons for not Prescribing Prophylaxis: Treatment not Indicated - Low risk for VTE
[2018-05-14] MEDS ORDERED: *HR* Oxytocin 10 UNIT/ML VIAL IM ONE (00:12)
[2018-05-14] MEDS ORDERED: Ondansetron 4 MG/2 ML VIAL ONE (00:22)
--- NOTE | 2018-05-14 01:08 | OB/GYN Procedure Note ---
Section - Date of procedure: 05/14/18 Preop diagnosis: category 2 FHT tracing, other (Type 2 DM, Severe pre-eclampsia, NRFHT) Post-op diagnosis: same Procedure: primary low transverse Surgeon: Ritu Davis Blood Loss: 400 Was there an quality assurance assistant present: Yes Railroad Commissioner: Zuleyma Madison Anesthesia Type: Spinal section complications: none Disposition: L&D Recovery Room Specimens: Placenta, Cord gasses - Narrative Narrative: The patient was brought to the operating room and was given satisfactory spinal anesthesia. The abdomen was prepped and draped in a sterile fashion. A Pfannenstiel incision was made and carried sharply down to the level of the fascia. The fascia was incised transversely. The fascia was dissected away from the underlying rectus muscles. With sharp and blunt dissection, the rectus muscles were divided in the midline. The peritoneum was entered bluntly. The incision was carried horizontally with scissors. A bladder retractor was placed to protect the bladder. A transverse incision was made across the lower uterine segment. The incision was manually extended. Clear amniotic fluid was encountered. The infant's head was pulled up and delivered easily as were the shoulders and body. The mouth and oropharynx were suctioned. The cord was clamped and cut. The infant was passed off to the waiting Real Estate Photographer. APGARs and weight pending. The placenta was extracted completely and found to be intact. The uterus was explored and found to be empty. The uterus was delivered through the abdominal incision and massaged vigorously. Intravenous Pitocin was administered. The margins of the uterine incision were closed primarily with a running locking stitch of 0 Vicryl with adequate hemostasis. Secondary running locking stitch was placed for extra strength to the wound. The uterus was returned to its proper anatomic position in the abdomen. The fascia was closed with a simple running stitch of 0 vicryl. The subcutaneous tissue was closed with 3-0 vicryl. The skin was closed with running subcuticular of 4-0 vicryl. The patient was brought to the recovery room in satisfactory condition.
[2018-05-14] MEDS ORDERED: Simethicone 80 MG TAB.CHEW PO PRN (01:56)
[2018-05-14] MEDS ORDERED: Metoclopramide 10 MG/2 ML VIAL IVP PRN (01:56)
[2018-05-14] MEDS ORDERED: D5% in Water 1,000 ML IVC PRN (01:56)
[2018-05-14] MEDS ORDERED: Sennosides 8.6 MG TABLET PO PRN (01:56)
[2018-05-14] MEDS ORDERED: *HR* Dextrose 50 % in Water (Syg) 50 ML SYRINGE IVP PRN (01:56)
[2018-05-14] MEDS ORDERED: Oxytocin 20 units/ LR 1000 mL 20 UNIT/1,000 ML BAG IVC SCH ×2 (01:56)
[2018-05-14] MEDS ORDERED: Dextrose Gel 15 GM/37.5 ML TUBE PO PRN ×2 (01:56)
[2018-05-14] MEDS ORDERED: Ondansetron 4 MG/2 ML VIAL IVP PRN (01:56)
--- NOTE | 2018-05-14 02:35 | Anesthesia Evaluation Post Op ---
Date of Encounter: 05/14/18 Time of Encounter: 01:52 - Vital Signs Vital Signs: vss - Lungs Lungs: Clear Ascult./Percussion - Airway Airway: Non-obstructed - Mental Status Mental Status: Alert & Oriented, Answers Appropriately - Pain Pain Scale used: Rudy (Faces) - Nausea Vomiting Nausea Vomiting: Not Present - Hydration Hydration: Snyder catheter - Discharge PostOp Status: Transfer Patient to floor
[2018-05-14] MEDS ORDERED: Penicillin G Potassium 2,500,000 UNIT in 0.9 % Sodium Chloride 100 ML IVPB SCH (03:00)
[2018-05-14] MEDS: *HR* OxyCODONE/APAP 5/325 TABLET PO PRN (05:17)
[2018-05-14 06:35] LABS: Amphetamine Screen,Urine Negative ng/mL (Cutoff=1000); Barbiturate Screen,Urine Positive ng/mL (Cutoff=200)
[2018-05-14 06:37] LABS: Benzodiazepines Screen,Urine Negative ng/mL (Cutoff=300); Cannabinoid Screen,Urine Negative ng/mL (Cutoff = 50); Cocaine Screen,Urine Negative ng/mL (Cutoff= 300); Opiate Screen,Urine Negative ng/mL (Cutoff=300); Phencyclidine Screen,Urine Negative ng/mL (Cutoff=25)
[2018-05-14] MEDS: Insulin LISPRO 300 UNITS/3 ML VIAL SQ SCH ×3 (07:02→17:49)
[2018-05-14] MEDS: Insulin DETEMIR 100 UNIT/ML X5UNITS SQ SCH ×2 (08:03→20:58)
[2018-05-14] MEDS: Prenatal Vit/FA 1 EACH TABLET PO SCH (08:04)
[2018-05-14] MEDS: *HR* Metformin 500 MG TABLET PO SCH ×2 (08:04→16:02)
--- NOTE | 2018-05-14 11:05 | OB/GYN Progress Note ---
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 Out of bed without dizziness. Some abdominal discomfort-using binder. Cramping minimal, using ibuprofen and Percocet. and pumping every 2-3 hours. Voiding without difficulty. Passing flatus, no BM yet. Tolerating clear liquid diet. Patient reports: appetite normal, voiding normally, pain well controlled, ambulating normally [place]: in NICU Objective - Vital Signs Latest vital signs: Vital Signs Temp Pulse Resp BP Pulse Ox 05/14/18 08:15 16 05/14/18 08:00 97.4 F L 95 16 135/73 05/14/18 06:30 98.2 F 99 16 124/68 98 05/14/18 05:30 98.0 F 97 16 134/82 97 05/14/18 04:30 97.7 F 91 16 112/78 98 05/14/18 04:00 97.7 F 85 16 137/72 98 05/14/18 03:00 97.9 F 82 14 114/60 99 Intake and Output 05/13/18 05/14/18 05/14/18 23:59 07:59 15:59 Intake Total 700 / 700 Output Total 1150 / 1150 600 / 600 Balance -1150 / -1150 100 / 100 Intake: Oral 700 / 700 Output: Emesis 400 / 400 Estimated Blood Loss 400 / 400 Catheter 750 / 750 200 / 200 Other: Weight 87.1 kg 82.5 kg Blood Glucose* 114 Patient Weight 05/14/18 23:59 Weight 82.5 kg - Exam Lungs: bilateral: normal Chest: Normal S1, Normal S2 Extremities: Present: normal Abdomen: Present: normal appearance, soft Incision: Present: normal, dry, dressed Uterus: Present: normal, firm Fundal Height: 0 (midline and firm) - Labs Labs: Laboratory Results - last 24 hr 05/13/18 05/13/18 05/13/18 20:12 20:30 20:30 WBC RBC Hgb Hct MCV MCH MCHC RDW Plt Count MPV Immature Gran % Seg Neutrophils % Lymphocytes % Monocytes % Eosinophils % Basophils % Neutrophils # Lymphocytes # Monocytes # Eosinophils # Basophils # BUN 9 Creatinine 0.59 L Est GFR ( Amer) > 60 Est GFR (Non-Af Amer) > 60 BUN/Creatinine Ratio 15 POC Glucose Uric Acid 7.0 AST 11 L ALT 8 Lactate Dehydrogenase 147 Urine Creatinine 13 Protein/Creatinin Ratio TNP Urine Total Protein < 4 Urine Opiates Screen Negative Ur Barbiturates Screen Positive H Ur Phencyclidine Scrn Negative Ur Amphetamines Screen Negative U Benzodiazepines Scrn Negative Urine Cocaine Screen Negative U Marijuana (THC) Screen Negative Ur Drug Screen Interp See Below 05/13/18 05/13/18 05/14/18 21:11 21:38 06:51 WBC 20.6 H RBC 5.03 H Hgb 12.6 D Hct 39.7 MCV 78.9 L MCH 25.0 L MCHC 31.7 RDW 15.9 H Plt Count 304 MPV 12.3 Immature Gran % 0.7 Seg Neutrophils % 69.4 Lymphocytes % 22.3 Monocytes % 6.0 Eosinophils % 1.2 Basophils % 0.4 Neutrophils # 14.3 H Lymphocytes # 4.6 Monocytes # 1.2 Eosinophils # 0.2 Basophils # 0.1 BUN Creatinine Est GFR ( Amer) Est GFR (Non-Af Amer) BUN/Creatinine Ratio POC Glucose 117 H 114 H Uric Acid AST ALT Lactate Dehydrogenase Urine Creatinine Protein/Creatinin Ratio Urine Total Protein Urine Opiates Screen Ur Barbiturates Screen Ur Phencyclidine Scrn Ur Amphetamines Screen U Benzodiazepines Scrn Urine Cocaine Screen U Marijuana (THC) Screen Ur Drug Screen Interp
[2018-05-14 11:25] LABS: Basophils % 0.3 %; Eosinophils # 0.2 K/mcL (0.0-0.6); Hematocrit 29.1 % (35.3-44.9); Immature Granulocytes % 0.7 % (0-4); Lymphocytes # 3.1 K/mcL (0.6-4.6); Lymphocytes % 21.4 %; Mean Corpuscular HGB Conc 32.3 g/dL (31.6-35.5); Mean Corpuscular Hemoglobin 25.6 pg (28.0-33.3); Mean Corpuscular Volume 79.3 fL (83.0-100.0); Mean Platelet Volume 12.1 fL (9.4-12.4); Monocytes # 0.9 K/mcL (0.0-1.3); Monocytes % 6.2 %; Neutrophils # 10.3 K/mcL (1.6-8.9); Platelet Count 202 K/mcL (140-400); Red Blood Count 3.67 M/mcL (3.82-4.97); Red Cell Distribution Width 15.6 % (11.5-14.5); Segmented Neutrophils % 70.4 %
[2018-05-14 11:30] LABS: Hemoglobin 9.4 g/dL (11.5-15.4)
[2018-05-14] MEDS: Ibuprofen 600 MG TABLET PO PRN (16:03)
[2018-05-15] MEDS: Ibuprofen 600 MG TABLET PO PRN ×2 (03:30→16:31)
[2018-05-15] MEDS: *HR* Metformin 500 MG TABLET PO SCH ×2 (08:11→16:34)
[2018-05-15] MEDS: Prenatal Vit/FA 1 EACH TABLET PO SCH (08:11)
--- NOTE | 2018-05-15 08:13 | OB/GYN Progress Note ---
Date of Encounter: 05/15/18 Time of Encounter: 08:11 - Assessment and Plan (1) Status post primary low transverse section Current Visit: Yes Status: Acute Pt meeting post-op milestones. Anticipate discharge home tomorrow. (2) Type 2 diabetes mellitus Current Visit: Yes Status: Acute Pt declining insulin but taking metformin. Her accuchecks have been appropriate . Qualifiers: Diabetes mellitus custodial insulin use: without parts counterman use Diabetes mellitus complication status: with unspecified complications Qualified Code(s): E11.8 - Type 2 diabetes mellitus with unspecified complications Subjective - Subjective Interval history: Pt reports pain well controlled with motrin and ambulation. She is tolerating a regular diet and passing flatus. is in nursery on oxygen. Anticipate discharge pt to [facility] status tomorrow. Patient reports: appetite normal, voiding normally, pain well controlled, ambulating normally [place]: doing well Objective - Vital Signs Latest vital signs: Vital Signs Temp Pulse Resp BP Pulse Ox 05/15/18 03:50 98.3 F 98 14 123/72 98 05/15/18 00:05 98.5 F 94 14 114/70 97 05/14/18 22:56 98.1 F 90 14 125/84 98 05/14/18 16:04 16 05/14/18 16:00 98.3 F 91 12 113/77 97 05/14/18 12:00 98.6 F 89 16 122/74 05/14/18 11:30 16 05/14/18 08:15 16 Intake and Output 05/14/18 05/15/18 05/15/18 23:59 07:59 15:59 Intake Total 400 / 400 Output Total 1450 / 1450 Balance -1050 / -1050 Intake: Oral 400 / 400 Output: Urine 1450 / 1450 Other: Meal Dinner Percent of Meal Consumed 100% Weight 79.832 kg Blood Glucose* 88 115 Patient Weight 05/15/18 23:59 Weight 79.832 kg - Exam Lungs: bilateral: normal Chest: Normal S1, Normal S2 Extremities: Present: normal Abdomen: Present: soft Incision: Present: intact (no s/sx infection, steri strips intact) Uterus: Present: firm Fundal Height: 1 (U/1) - Labs Labs: Laboratory Results - last 24 hr 05/14/18 05/14/18 05/14/18 11:01 11:27 16:14 WBC 14.6 H RBC 3.67 L Hgb 9.4 L D Hct 29.1 L MCV 79.3 L MCH 25.6 L MCHC 32.3 RDW 15.6 H Plt Count 202 MPV 12.1 Immature Gran % 0.7 Seg Neutrophils % 70.4 Lymphocytes % 21.4 Monocytes % 6.2 Eosinophils % 1.0 Basophils % 0.3 Neutrophils # 10.3 H Lymphocytes # 3.1 Monocytes # 0.9 Eosinophils # 0.2 Basophils # 0.0 POC Glucose 106 H 88 05/15/18 05/15/18 00:11 08:09 WBC RBC Hgb Hct MCV MCH MCHC RDW Plt Count MPV Immature Gran % Seg Neutrophils % Lymphocytes % Monocytes % Eosinophils % Basophils % Neutrophils # Lymphocytes # Monocytes # Eosinophils # Basophils # POC Glucose 115 H 103 H
[2018-05-15] MEDS: Insulin DETEMIR 100 UNIT/ML X5UNITS SQ SCH ×2 (08:16→19:48)
[2018-05-15] MEDS: Insulin LISPRO 300 UNITS/3 ML VIAL SQ SCH (08:20)
[2018-05-15] MEDS: *HR* OxyCODONE/APAP 5/325 TABLET PO PRN (11:26)
[2018-05-15] MEDS ORDERED: Lanolin 7 G OINT...G. TP PRN (12:56)
[2018-05-16] MEDS: Ibuprofen 600 MG TABLET PO PRN ×2 (02:15→08:12)
[2018-05-16] MEDS: *HR* Metformin 500 MG TABLET PO SCH ×2 (08:09→08:10)
[2018-05-16] MEDS: Prenatal Vit/FA 1 EACH TABLET PO SCH (08:09)
[2018-05-16 08:35] VITALS: BP 114/61
--- NOTE | 2018-05-16 09:01 | Discharge Summary ---
Date of Encounter: 05/16/18 Time of Encounter: 08:57 - Discharge Diagnosis (1) Breast feeding status of mother Priority: Secondary Status: Acute Comments: support prn (2) Status post primary low transverse section Priority: Primary Status: Acute Comments: Continue routine postop/ care discharge home today follow up with Dr. Renteria in 2 weeks (3) Type 2 diabetes mellitus Priority: Secondary Status: Acute Qualifiers: Diabetes mellitus termite technician insulin use: without detention use Diabetes mellitus complication status: with unspecified complications Qualified Code(s): E11.8 - Type 2 diabetes mellitus with unspecified complications - Discharge Medications Prescriptions: OxyCODONE/APAP 5/325 [Percocet 5/325 MG] 1 each PO Q4HR PRN 5 Days #28 tablet PRN Reason: Moderate pain 4-6 Ibuprofen [Motrin] 600 mg PO Q6HR PRN #60 tablet PRN Reason: Cramping Docusate [Colace] 100 mg PO BID #30 capsule Pnv95/Ferrous Fumarate/FA [ Vitamin Tablet] 1 tab PO BID #30 tablet Home Medications: Docusate [Colace] 100 mg PO BID #30 capsule 05/16/18 [Rx] Ibuprofen [Motrin] 600 mg PO Q6HR PRN #60 tablet 05/16/18 [Rx] Lanolin [Lansinoh] 1 appl TP TID PRN oint...g. 05/16/18 [Rx] Mupirocin [Bactroban Oint] 1 appl TP BID tube 05/16/18 [Rx] OxyCODONE/APAP 5/325 [Percocet 5/325 MG] 1 each PO Q4HR PRN 5 Days #28 tablet 05/16/18 [Rx] Pnv95/Ferrous Fumarate/FA [ Vitamin Tablet] 1 tab PO BID #30 tablet 05/16/18 [Rx] metFORMIN [Glucophage] 1,000 mg PO BIDWM tablet 05/16/18 [Rx] Allergies/Adverse Reactions: Allergy/AdvReac Type Severity Reaction Status Date / Time cephalexin [From Keflex] Allergy Intermediate Hives Verified 05/13/18 19:42 diphenhydramine Allergy Intermediate Hives Verified 05/13/18 19:42 [From Benadryl] Data Procedures and tests throughout hospitalization: Laboratory Tests 05/13/18 05/13/18 05/13/18 20:12 20:30 20:30 WBC RBC Hgb Hct MCV MCH MCHC RDW Plt Count MPV Immature Gran % Seg Neutrophils % Lymphocytes % Monocytes % Eosinophils % Basophils % Neutrophils # Lymphocytes # Monocytes # Eosinophils # Basophils # BUN 9 Creatinine 0.59 L Est GFR ( Amer) > 60 Est GFR (Non-Af Amer) > 60 BUN/Creatinine Ratio 15 POC Glucose Uric Acid 7.0 AST 11 L ALT 8 Lactate Dehydrogenase 147 Urine Creatinine 13 Protein/Creatinin Ratio TNP Urine Total Protein < 4 Urine Opiates Screen Negative Ur Barbiturates Screen Positive H Ur Phencyclidine Scrn Negative Ur Amphetamines Screen Negative U Benzodiazepines Scrn Negative Urine Cocaine Screen Negative U Marijuana (THC) Screen Negative Ur Drug Screen Interp See Below 05/13/18 05/13/18 05/14/18 21:11 21:38 06:51 WBC 20.6 H RBC 5.03 H Hgb 12.6 D Hct 39.7 MCV 78.9 L MCH 25.0 L MCHC 31.7 RDW 15.9 H Plt Count 304 MPV 12.3 Immature Gran % 0.7 Seg Neutrophils % 69.4 Lymphocytes % 22.3 Monocytes % 6.0 Eosinophils % 1.2 Basophils % 0.4 Neutrophils # 14.3 H Lymphocytes # 4.6 Monocytes # 1.2 Eosinophils # 0.2 Basophils # 0.1 BUN Creatinine Est GFR ( Amer) Est GFR (Non-Af Amer) BUN/Creatinine Ratio POC Glucose 117 H 114 H Uric Acid AST ALT Lactate Dehydrogenase Urine Creatinine Protein/Creatinin Ratio Urine Total Protein Urine Opiates Screen Ur Barbiturates Screen Ur Phencyclidine Scrn Ur Amphetamines Screen U Benzodiazepines Scrn Urine Cocaine Screen U Marijuana (THC) Screen Ur Drug Screen Interp 05/14/18 05/14/18 05/14/18 11:01 11:27 16:14 WBC 14.6 H RBC 3.67 L Hgb 9.4 L D Hct 29.1 L MCV 79.3 L MCH 25.6 L MCHC 32.3 RDW 15.6 H Plt Count 202 MPV 12.1 Immature Gran % 0.7 Seg Neutrophils % 70.4 Lymphocytes % 21.4 Monocytes % 6.2 Eosinophils % 1.0 Basophils % 0.3 Neutrophils # 10.3 H Lymphocytes # 3.1 Monocytes # 0.9 Eosinophils # 0.2 Basophils # 0.0 BUN Creatinine Est GFR ( Amer) Est GFR (Non-Af Amer) BUN/Creatinine Ratio POC Glucose 106 H 88 Uric Acid AST ALT Lactate Dehydrogenase Urine Creatinine Protein/Creatinin Ratio Urine Total Protein Urine Opiates Screen Ur Barbiturates Screen Ur Phencyclidine Scrn Ur Amphetamines Screen U Benzodiazepines Scrn Urine Cocaine Screen U Marijuana (THC) Screen Ur Drug Screen Interp 05/15/18 05/15/18 05/15/18 00:11 08:09 11:59 WBC RBC Hgb Hct MCV MCH MCHC RDW Plt Count MPV Immature Gran % Seg Neutrophils % Lymphocytes % Monocytes % Eosinophils % Basophils % Neutrophils # Lymphocytes # Monocytes # Eosinophils # Basophils # BUN Creatinine Est GFR ( Amer) Est GFR (Non-Af Amer) BUN/Creatinine Ratio POC Glucose 115 H 103 H 119 H Uric Acid AST ALT Lactate Dehydrogenase Urine Creatinine Protein/Creatinin Ratio Urine Total Protein Urine Opiates Screen Ur Barbiturates Screen Ur Phencyclidine Scrn Ur Amphetamines Screen U Benzodiazepines Scrn Urine Cocaine Screen U Marijuana (THC) Screen Ur Drug Screen Interp 05/15/18 05/15/18 16:45 23:29 WBC RBC Hgb Hct MCV MCH MCHC RDW Plt Count MPV Immature Gran % Seg Neutrophils % Lymphocytes % Monocytes % Eosinophils % Basophils % Neutrophils # Lymphocytes # Monocytes # Eosinophils # Basophils # BUN Creatinine Est GFR ( Amer) Est GFR (Non-Af Amer) BUN/Creatinine Ratio POC Glucose 104 H 140 H Uric Acid AST ALT Lactate Dehydrogenase Urine Creatinine Protein/Creatinin Ratio Urine Total Protein Urine Opiates Screen Ur Barbiturates Screen Ur Phencyclidine Scrn Ur Amphetamines Screen U Benzodiazepines Scrn Urine Cocaine Screen U Marijuana (THC) Screen Ur Drug Screen Interp Labs on day of discharge: Labs from last 24 hours 05/15/18 05/15/18 05/15/18 23:29 16:45 11:59 POC Glucose 140 H 104 H 119 H Date of admission: 05/13/18 22:48 Primary care physician: PCP NONE Consults: 05/14/18 01:56 Consult to Feeder Loader (W&C) [CONS] Routine Reason For Exam: Reason for SW Consult: + THC on admission Discharging clinician: Cathleen Anton Anticipated date of discharge: 05/16/18 - Patient Status Disposition: Home, Self-Care Condition: Good - Discharge Instructions Follow Up With: NONE,PCP [Primary Care Provider] - Ritu Renteria MD [Partnered Physician] - - Diet and Activity Activity: increase activity as tolerated Diet: regular diet Hospital Course Procedures: OARRS report reviewed by CALLIE Martinez Reason for admission: induction of labor Delivery: section Laceration: none Other procedures: none complications: none Discharge diagnosis: IUP at term delivered baby: female (breast feeding) Time Attestation: Total time spent providing and/or coordinating discharge services: Time Spent: Less than 30 minutes - VTE Reasons for not Prescribing Prophylaxis: Treatment not Indicated - Low risk for VTE Documentation of Mechanical Device: Intermittent pneumatic compression device Exam - Constitutional Vitals: Temp Pulse Resp BP Pulse Ox 98.7 F 97 14 114/61 96 05/16/18 08:22 05/16/18 08:22 05/16/18 08:22 05/16/18 08:22 05/16/18 08:22 General appearance IM: A&O X 3, pleasant, answers questions appropriately - Respiratory Respiratory exam: Present: CTAB - Cardiovascular Cardiovascular exam IM: Present: RRR, +S1, +S2 - GI/Abdominal GI/Abdominal exam IM: normal bowel sounds Incision: normal, dry, intact, other (steri strips) - Uterine Tone: Firm Uterus Position: 2 Fingers Below Umbilicus, Midline - Extremities Exam Extremities exam IM: Present: full ROM, normal capillary refill, normal inspection - Neurological Exam Neurological exam: alert, oriented X3, reflexes normal
== END 2018-05-16 10:10 | disposition home or self-care (01) | DRG 540 ==
LOC: 1NENULAB → 1NENUOBS 05-14 03:38
PROVIDERS: ADMIT Student in an Organized Health Care Education/Training Program; ATTEND Student in an Organized Health Care Education/Training Program

== ENCOUNTER → 2020-07-11 17:15 | Observation (INO) ==
[2020-07-11 15:51] LABS: Amorphous Sediment,Urine Few per hpf (None-Few); Bacteria,Urine Few per hpf (None-Few); Bilirubin,Urine Negative (Negative); Blood,Urine Negative (Negative); Clarity,Urine Clear (Clear); Color,Urine Light-Yellow (Yellow); Glucose,Urine (UA) Normal (Normal); Ketones,Urine Negative (Negative); Leukocyte Esterase,Urine Small (Negative); Nitrite,Urine Negative (Negative); PH,Urine 6.5 pH Units (5.0-8.0); Protein,Urine Negative (Neg-Trace); RBC,Urine 0-3 per hpf (0-3); Specific Gravity,Urine 1.012 (1.010-1.025); Squamous Epithelial Cell,Urine Few per hpf (None-Few); Urobilinogen,Urine Normal (Normal)
[2020-07-11 17:28] LABS: Candida DNA Not Detected (Not Detect); Gardnerella DNA Not Detected (Not Detect); Trichomonas DNA Not Detected (Not Detect)
== END | disposition home or self-care (01) ==
LOC: 1NENULAB
PROVIDERS: ADMIT Advanced Practice Midwife; ATTEND Advanced Practice Midwife

== ENCOUNTER 2020-07-24 19:02 | Observation (INO) ==
[2020-07-24 19:51] LABS: Basophils # 0.1 K/mcL (0.0-0.2); Basophils % 0.6 %; Eosinophils # 0.4 K/mcL (0.0-0.6); Eosinophils % 1.8 %; Hematocrit 32.1 % (35.3-44.9); Hemoglobin 10.2 g/dL (11.5-15.4); Immature Granulocytes % 2.4 % (0-4); Lymphocytes # 4.4 K/mcL (0.6-4.6); Lymphocytes % 20.6 %; Mean Corpuscular HGB Conc 31.8 g/dL (31.6-35.5); Mean Corpuscular Hemoglobin 26.3 pg (28.0-33.3); Mean Corpuscular Volume 82.7 fL (83.0-100.0); Mean Platelet Volume 11.2 fL (9.4-12.4); Monocytes # 1.4 K/mcL (0.0-1.3); Monocytes % 6.3 %; Neutrophils # 14.6 K/mcL (1.6-8.9); Platelet Count 291 K/mcL (140-400); Red Blood Count 3.88 M/mcL (3.82-4.97); Red Cell Distribution Width 14.1 % (11.5-14.5); Segmented Neutrophils % 68.3 %; White Blood Count 21.4 K/mcL (4.3-11.1)
[2020-07-24 20:00] LABS: Bacteria,Urine Moderate per hpf (None-Few); Bilirubin,Urine Negative (Negative); Blood,Urine Negative (Negative); Clarity,Urine Turbid (Clear); Color,Urine Colorless (Yellow); Glucose,Urine (UA) Normal (Normal); Ketones,Urine Negative (Negative); Leukocyte Esterase,Urine Moderate (Negative); Mucus,Urine Few per lpf (None-Few); Nitrite,Urine Negative (Negative); PH,Urine 6.5 pH Units (5.0-8.0); Protein,Urine Negative (Neg-Trace); Protein/Creatinine Ratio,Urine 0.19 mg/mg (0.00-0.20); Renal Epithelial Cells,Urine Few per hpf (None-Few); Specific Gravity,Urine 1.007 (1.010-1.025); Squamous Epithelial Cell,Urine Moderate per hpf (None-Few); Transitional Epi Cells,Urine Few per hpf (None-Few); Urobilinogen,Urine Normal (Normal)
[2020-07-24 20:10] LABS: Platelet Estimate Normal (Normal)
[2020-07-24 20:11] LABS: Alanine Aminotransferase 6 Units/L (7-52); Aspartate Amino Transferase 8 Units/L (13-39); BUN/Creatinine Ratio 13 (6-26); Blood Urea Nitrogen 6 mg/dL (6-20); Glucose 94 mg/dL (70-105); Lactate Dehydrogenase 103 Units/L (140-271); eGFR For African Americans > 60 (> 60); eGFR For Non-African Americans > 60 (> 60)
== END 2020-07-24 20:32 | disposition home or self-care (01) ==
LOC: 1NENULAB
PROVIDERS: ADMIT Advanced Practice Midwife; ATTEND Advanced Practice Midwife

== ENCOUNTER → 2020-08-27 23:40 | Observation (INO) ==
[2020-08-27 21:35] VITALS: BP 126/79
[2020-08-27 21:40] LABS: Bacteria,Urine Few per hpf (None-Few); Bilirubin,Urine Negative (Negative); Blood,Urine Negative (Negative); Budding Yeast,Urine Many per hpf (None Seen); Clarity,Urine Turbid (Clear); Color,Urine Light-Yellow (Yellow); Glucose,Urine (UA) Normal (Normal); Ketones,Urine Negative (Negative); Leukocyte Esterase,Urine Small (Negative); Mucus,Urine Few per lpf (None-Few); Nitrite,Urine Negative (Negative); PH,Urine 6.5 pH Units (5.0-8.0); Protein,Urine Negative (Neg-Trace); Specific Gravity,Urine 1.012 (1.010-1.025); Squamous Epithelial Cell,Urine Moderate per hpf (None-Few); Urobilinogen,Urine Normal (Normal)
[2020-08-28 00:24] LABS: Candida DNA Not Detected (Not Detect); Gardnerella DNA Not Detected (Not Detect); Trichomonas DNA Not Detected (Not Detect)
== END | disposition home or self-care (01) ==
LOC: 1NENULAB
PROVIDERS: ADMIT Registered Nurse; ATTEND Registered Nurse

== ENCOUNTER 2020-10-27 05:16 | Inpatient (IN) ==
[2020-10-27] MEDS ORDERED: Naloxone 0.4 MG/ML INJ IVP PRN (06:23)
[2020-10-27] MEDS ORDERED: Metoclopramide 10 MG/2 ML VIAL IVP PRN ×2 (06:23→13:29)
[2020-10-27] MEDS ORDERED: Azithromycin 500 MG in 0.9 % Sodium Chloride 250 ML IVPB PRN (06:23)
[2020-10-27] MEDS ORDERED: Ondansetron 4 MG/2 ML VIAL IVP PRN ×3 (06:23→13:29)
[2020-10-27] MEDS ORDERED: Famotidine 20 MG/2 ML VIAL IVP PRN (06:23)
[2020-10-27] MEDS ORDERED: ceFAZolin 2,000 MG in 0.9 % Sodium Chloride 100 ML IVPB ONE (06:28)
[2020-10-27] MEDS ORDERED: Ringers Solution, Lactated 1,000 ML IVC SCH ×2 (06:30→13:29)
[2020-10-27 06:45] LABS: Basophils # 0.1 K/mcL (0.0-0.2); Basophils % 0.6 %; Eosinophils # 0.1 K/mcL (0.0-0.6); Eosinophils % 1.5 %; Hematocrit 36.1 % (35.3-44.9); Hemoglobin 11.3 g/dL (11.5-15.4); Immature Granulocytes % 0.8 % (0-4); Lymphocytes # 3.2 K/mcL (0.6-4.6); Lymphocytes % 39.9 %; Mean Corpuscular HGB Conc 31.3 g/dL (31.6-35.5); Mean Corpuscular Hemoglobin 25.2 pg (28.0-33.3); Mean Corpuscular Volume 80.4 fL (83.0-100.0); Mean Platelet Volume 12.4 fL (9.4-12.4); Monocytes # 0.7 K/mcL (0.0-1.3); Monocytes % 8.2 %; Neutrophils # 3.9 K/mcL (1.6-8.9); Platelet Count 182 K/mcL (140-400); Red Blood Count 4.49 M/mcL (3.82-4.97); Red Cell Distribution Width 15.5 % (11.5-14.5); White Blood Count 7.9 K/mcL (4.3-11.1)
[2020-10-27] MEDS ORDERED: *HR* Morphine Sulfate/PF 10 MG/10 ML AMPUL ONE (07:16)
[2020-10-27] MEDS ORDERED: *HR* FentaNYL (PF) 100 MCG/2 ML VIAL ONE (07:16)
[2020-10-27] MEDS ORDERED: EPHEDrine 50 MG/ML VIAL ONE (07:16)
[2020-10-27] MEDS ORDERED: Acetaminophen IV 1,000 MG/100 ML BAG IVPB ONE (07:21)
[2020-10-27] MEDS ORDERED: Ketorolac 30 MG/ML VIAL ONE (07:21)
[2020-10-27] MEDS ORDERED: Gentamicin 320 MG in 0.9 % Sodium Chloride 100 ML IVPB ONE (07:31)
[2020-10-27] MEDS ORDERED: Clindamycin 900 MG/50 ML 900 MG/50 ML IV.SOLN IVPB ONE (07:31)
[2020-10-27] MEDS ORDERED: *HR* HYDROmorphone PF 0.5 MG/0.5 ML SYRINGE IVP PRN (09:18)
[2020-10-27] MEDS ORDERED: *HR* OxyCODONE Immed Rel 5 MG TABLET PO PRN (09:18)
[2020-10-27 09:29] LABS: Amphetamine Screen,Urine Negative ng/mL (Cutoff=1000); Barbiturate Screen,Urine Negative ng/mL (Cutoff=200); Benzodiazepines Screen,Urine Negative ng/mL (Cutoff=200); Cannabinoid Screen,Urine Negative ng/mL (Cutoff = 50); Cocaine Screen,Urine Negative ng/mL (Cutoff= 300); Opiate Screen,Urine Negative ng/mL (Cutoff=300); Phencyclidine Screen,Urine Negative ng/mL (Cutoff=25)
[2020-10-27] MEDS ORDERED: *HR* HYDROmorphone (PF) 1 MG/ML SYRINGE IVP PRN (09:48)
[2020-10-27] MEDS ORDERED: FOLIC ACID PO SCH (13:29)
[2020-10-27] MEDS ORDERED: *HR* OxyCODONE/APAP 5/325 TABLET PO PRN (13:29)
[2020-10-27] MEDS ORDERED: Rho Immune Globulin 1,500 UNIT SYRINGE IM ONE (13:29)
[2020-10-27] MEDS ORDERED: [UNRECOGNIZED DRUG - REMARK] PO SCH (13:29)
[2020-10-27] MEDS ORDERED: B12 PO SCH (13:29)
[2020-10-27] MEDS ORDERED: [UNRECOGNIZED DRUG - OTHER] PO SCH (13:29)
[2020-10-27] MEDS ORDERED: Dextrose Gel 15 GM/37.5 ML TUBE PO PRN ×2 (13:29)
[2020-10-27] MEDS ORDERED: Oxytocin 20 units/ LR 1000 mL 20 UNIT/1,000 ML BAG IVC SCH (13:29)
[2020-10-27] MEDS ORDERED: D5% in Water 1,000 ML IVC PRN (13:29)
[2020-10-27] MEDS ORDERED: IRON PS COMPLEX PO SCH (13:29)
[2020-10-27] MEDS ORDERED: *HR* Dextrose 50 % in Water (Syg) 50 ML SYRINGE IVP PRN (13:29)
[2020-10-27] MEDS: Insulin LISPRO 300 UNITS/3 ML VIAL SUBQ SCH ×4 (15:20→17:29)
[2020-10-27] MEDS: *HR* Metformin 500 MG TABLET PO SCH (17:13)
[2020-10-27] MEDS: Prenatal Vit/FA 1 EACH TABLET PO SCH (17:27)
[2020-10-27] MEDS: Ibuprofen 600 MG TABLET PO SCH (21:31)
[2020-10-28] MEDS: Ibuprofen 600 MG TABLET PO SCH ×3 (05:09→19:50)
[2020-10-28 06:15] LABS: Basophils # 0.1 K/mcL (0.0-0.2); Basophils % 0.4 %; Eosinophils # 0.2 K/mcL (0.0-0.6); Eosinophils % 1.3 %; Hematocrit 30.5 % (35.3-44.9); Immature Granulocytes % 0.5 % (0-4); Lymphocytes % 29.1 %; Mean Corpuscular HGB Conc 30.8 g/dL (31.6-35.5); Mean Corpuscular Hemoglobin 25.4 pg (28.0-33.3); Mean Corpuscular Volume 82.4 fL (83.0-100.0); Monocytes # 0.9 K/mcL (0.0-1.3); Monocytes % 7.2 %; Neutrophils # 7.5 K/mcL (1.6-8.9); Platelet Count 147 K/mcL (140-400); Red Cell Distribution Width 15.6 % (11.5-14.5); Segmented Neutrophils % 61.5 %
[2020-10-28 06:18] LABS: Hemoglobin 9.4 g/dL (11.5-15.4); Lymphocytes # 3.6 K/mcL (0.6-4.6); White Blood Count 12.2 K/mcL (4.3-11.1)
[2020-10-28] MEDS: *HR* Metformin 500 MG TABLET PO SCH ×2 (09:12→19:47)
[2020-10-28] MEDS: Prenatal Vit/FA 1 EACH TABLET PO SCH (09:12)
[2020-10-28] MEDS: Insulin LISPRO 300 UNITS/3 ML VIAL SUBQ SCH ×2 (09:12)
[2020-10-28] MEDS: Simethicone 80 MG TAB.CHEW PO PRN (12:11)
[2020-10-29] MEDS: Simethicone 80 MG TAB.CHEW PO PRN (00:05)
[2020-10-29] MEDS: Ibuprofen 600 MG TABLET PO SCH ×2 (04:41→08:23)
[2020-10-29 08:06] VITALS: BP 129/85
[2020-10-29] MEDS: Insulin LISPRO 300 UNITS/3 ML VIAL SUBQ SCH ×2 (08:17)
[2020-10-29] MEDS: Prenatal Vit/FA 1 EACH TABLET PO SCH (08:21)
[2020-10-29] MEDS: *HR* Metformin 500 MG TABLET PO SCH (08:23)
== END 2020-10-29 15:05 | disposition home or self-care (01) | DRG 539 ==
LOC: 1NENULAB 05:16 → 1NENUOBS 12:40
PROVIDERS: ADMIT Student in an Organized Health Care Education/Training Program; ATTEND Student in an Organized Health Care Education/Training Program